=== PATIENT | female | born 1985 | race Hispanic/Latino ===

== ENCOUNTER 2023-02-19 10:19 | Outpatient (CLI) | payer BC, OTHER | END 2023-02-19 10:20 | disposition home or self-care (01) | LOC: RAD 10:19 | PROVIDERS: ATTEND Internal Medicine | DX: R76.12 Nonspecific reaction to cell mediated immunity measurement of gamma interferon antigen response without active tuberculosis (principal) | CPT/HCPCS: 71046 ==